=== PATIENT | female | born 1945 | race Caucasian/White ===

== ENCOUNTER 2017-12-15 14:30 | Outpatient (CLI) | payer MEDICARE, OTHER | END 2017-12-15 14:31 | disposition home or self-care (01) | LOC: BICMAMMO 14:30 | PROVIDERS: ATTEND Family Medicine | DX: Z12.31 Encounter for screening mammogram for malignant neoplasm of breast (principal) | CPT/HCPCS: 77063; 77067 ==

== ENCOUNTER 2019-01-03 14:10 | Outpatient (CLI) | payer MEDICARE, OTHER ==
--- NOTE | 2019-01-03 14:49 | MMO ---
Bilateral MAMMO Bilat Screen [facility]. CLINICAL HISTORY: Patient is 73 years old and is seen for screening. The patient has no family history of breast cancer. The patient has no personal history of cancer. VIEWS: The views performed were: bilateral craniocaudal with tomosynthesis and bilateral mediolateral oblique with tomosynthesis. FILMS COMPARED: The present examination has been compared to prior imaging studies performed at [facility] on 09/12/2014, 10/12/2015, 10/21/2016 and 12/15/2017. MAMMOGRAM FINDINGS: There are scattered fibroglandular densities. There are no suspicious masses, suspicious calcifications, or new areas of architectural distortion. IMPRESSION: THERE IS NO MAMMOGRAPHIC EVIDENCE OF MALIGNANCY. A ROUTINE FOLLOW-UP MAMMOGRAM IN 1 YEAR IS RECOMMENDED. THE RESULTS OF THIS EXAM WERE SENT TO THE PATIENT. ACR BI-RADS Category 1 - Negative MAMMOGRAPHY NOTE: 1. A negative mammogram report should not delay a biopsy if a dominant of clinically suspicious mass is present. 2. Approximately 10% to 15% of breast cancers are not detected by mammography. 3. Adenosis and dense breasts may obscure an underlying neoplasm. Reported by: Albert CLARK Electonically Signed: [id number]
== END 2019-01-03 14:11 | disposition home or self-care (01) ==
LOC: BICMAMMO 14:10
PROVIDERS: ATTEND Family Medicine
DX: Z12.31 Encounter for screening mammogram for malignant neoplasm of breast (principal)
CPT/HCPCS: 77063; 77067

== ENCOUNTER 2022-01-27 11:08 | Outpatient (CLI) | payer MEDICARE, OTHER | END 2022-01-27 11:09 | disposition home or self-care (01) | LOC: BICMAMMO 11:08 | PROVIDERS: ATTEND Family Medicine | DX: Z12.31 Encounter for screening mammogram for malignant neoplasm of breast (principal) | CPT/HCPCS: 77063; 77067 ==

== ENCOUNTER 2023-01-28 09:10 | Outpatient (CLI) | payer MEDICARE, OTHER | END 2023-01-28 09:11 | disposition home or self-care (01) | LOC: BICMAMMO 09:10 | PROVIDERS: ATTEND Family Medicine | DX: Z13.820 Encounter for screening for osteoporosis (principal); M85.88 Other specified disorders of bone density and structure, other site; M85.851 Other specified disorders of bone density and structure, right thigh; M85.852 Other specified disorders of bone density and structure, left thigh | CPT/HCPCS: 36415; 77080; 80053; 80061; 85025 ==

== ENCOUNTER 2023-02-10 13:46 | Outpatient (CLI) | payer MEDICARE, OTHER | END 2023-02-10 13:47 | disposition home or self-care (01) | LOC: BICMAMMO 13:46 | PROVIDERS: ATTEND Family Medicine | DX: Z12.31 Encounter for screening mammogram for malignant neoplasm of breast (principal) | CPT/HCPCS: 77063; 77067 ==

== ENCOUNTER 2025-02-24 08:58 | Outpatient (CLI) | payer MEDICARE, OTHER | END 2025-02-24 08:59 | disposition home or self-care (01) | LOC: BICMAMMO 08:58 | PROVIDERS: ATTEND Family Medicine | DX: Z12.31 Encounter for screening mammogram for malignant neoplasm of breast (principal) | CPT/HCPCS: 77063; 77067 ==